=== PATIENT | female | born 1970 | race Caucasian/White ===

== ENCOUNTER 2019-03-15 22:58 | Emergency (ER) | payer MEDICAID, OTHER ==
[~2019-03-15] VITALS: Ht 157.5 cm; Wt 55.2 kg
[2019-03-15] MEDS ORDERED: KETOROLAC 30 MG/1 ML IVPush ONE (23:30)
[2019-03-15] MEDS ORDERED: DIPHENHYDRAMINE 50 MG/ML, 1ML IVPush ONE (23:30)
[2019-03-15] MEDS ORDERED: PROCHLORPERAZINE 5 MG/ML, 2ML IVPush ONE (23:30)
[2019-03-15 23:40] LABS: BASOPHILS # (AUTO) 0.04 x10^3/uL (0-0.1); BASOPHILS % (AUTO) 1 % (0-1); EOSINOPHILS # (AUTO) 0.11 x10^3/uL (0-0.4); EOSINOPHILS % (AUTO) 2 % (1-7); LYMPHOCYTES # (AUTO) 1.31 x10^3/uL (1-3.4); LYMPHOCYTES % (AUTO) 19 % (22-44); MD NO; MEAN CORPUSCULAR HEMOGLOBIN 24.4 pg (27.0-34.8); MEAN CORPUSCULAR HGB CONC 31.7 g/dL (32.4-35.8); MEAN CORPUSCULAR VOLUME 76.9 fL (80-100); MEAN PLATELET VOLUME 7.7 fL (7.4-10.4); MONOCYTES # (AUTO) 0.34 x10^3/uL (0.2-0.8); MONOCYTES % (AUTO) 5 % (2-9); NEUTROPHILS # (AUTO) 5.19 x10^3/uL (1.8-6.8); NEUTROPHILS % (AUTO) 74 % (42-75); PLATELET COUNT 322 x10^3/uL (130-400); RED BLOOD COUNT 4.56 x10^6/uL (3.82-5.3)
[2019-03-15 23:50] LABS: ALANINE AMINOTRANSFERASE 17 U/L (12-78); ALBUMIN 3.6 g/dL (3.4-5.0); ANION GAP 6 mmol/L (5-15); CALCIUM 8.9 mg/dL (8.5-10.1); CHLORIDE 110 mmol/L (98-107); CREATININE 0.87 mg/dL (0.55-1.02)
[2019-03-15 23:55] LABS: ALKALINE PHOSPHATASE 114 U/L (45-117); BILIRUBIN,TOTAL 0.3 mg/dL (0.2-1.0); TOTAL PROTEIN 6.7 g/dL (6.4-8.2); TROPONIN I < 0.015 ng/mL (0.000-0.045)
[2019-03-16] MEDS ORDERED: KETOROLAC 30 MG/1 ML ONE (00:06)
[2019-03-16] MEDS ORDERED: PROCHLORPERAZINE 5 MG/ML, 2ML ONE (00:06)
[2019-03-16] MEDS ORDERED: DIPHENHYDRAMINE 50 MG/ML, 1ML ONE (00:06)
--- NOTE | 2019-03-16 01:15 | NUR ---
RN to bedside, informed of need for peripheral iv for medications. As RN started iv physician returned to bedside to update on results. RN started iv per protocol and administered medications. RN returned an hour later, to check on patient. Patient vitals within normal limits but still lethargic from medications. Awaiting to become more arousable to discharge patient.
--- NOTE | 2019-03-16 02:49 | NUR ---
RN again to bedside, still very lethargic from previous medications. Awaiting further arousal for patient discharge
[2019-03-16 05:09] VITALS: BP 150/95
--- NOTE | 2019-03-16 05:10 | NUR ---
RN to bedside, still sleeping soundly. Attempted to awake. Patient stated "yes" and then presumed to fall back asleep. Still lethargic after medications. Still questionably safe to discharge. Will discharge when more arousable.
== END 2019-03-16 05:36 | disposition home or self-care (01) ==
LOC: ED 03-16 05:15
DX: G43.009 Migraine without aura, not intractable, without status migrainosus (principal); I10 Essential (primary) hypertension; Z87.891 Personal history of nicotine dependence
CPT/HCPCS: 36415; 80053; 84484; 85025; 93005; 96374; 96375; 99284; J0780; J1200; J1885